=== PATIENT | male | born 2000 | race Two or more races ===

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

== ENCOUNTER 2019-05-15 13:20 | Emergency (ER) | payer OTHER ==
[~2019-05-15] VITALS: Ht 177.8 cm; Wt 81.2 kg
--- NOTE | 2019-05-15 14:52 | NUR ---
PATIENT WAS SEEN BY . DC, RX AND FOLLOW UP INSTRUCTIONS GIVEN AND EXPLAINED TO PATIENT WHO STATES HE UNDERSTANDS ALL INSTRUCTIONS.
== END 2019-05-15 14:53 | disposition home or self-care (01) ==
LOC: ER 13:20
DX: J20.8 Acute bronchitis due to other specified organisms (principal); B97.89 Other viral agents as the cause of diseases classified elsewhere; J45.909 Unspecified asthma, uncomplicated
CPT/HCPCS: 71046; A4663